=== PATIENT | male | born 1970 | race American Indian/Alaskan Native ===

== ENCOUNTER 2016-10-01 10:34 | Outpatient (CLI) | payer MEDICARE ==
--- NOTE | 2016-10-01 14:47 | XRay Report ---
BILATERAL HIP RADIOGRAPHS WITH PELVIS INDICATION: Hip pain. COMPARISON: 06/27/2012 abdomen radiograph. FINDINGS: An AP pelvis and bilateral frog-leg projections of the hips demonstrate 3 threaded screws each within proximal femur bilaterally, traversing the neck. Old deformity/bony ridging along the right femoral neck noted, more so along its outer/lateral aspect and extending to the lateral head articular surface as well. Mild right femoral head articular surface irregularity/slight flattening also noted with numerous subchondral lucencies. Left femoral head articular surface appears preserved. Mild left acetabular corner spurring laterally. Intact remainder pelvis articulation. Mild lower lumbar degenerative changes. Nonobstructive bowel gas pattern. CONCLUSION: Right hip/femoral head and neck degenerative changes mildly increased since June 2012, though again noted asymmetrically greater than the left in this patient with stable bilateral proximal femoral post surgical changes, as described. Thank you for the opportunity to participate in this patient's care.
== END 2016-10-01 10:35 | disposition home or self-care (01) ==
LOC: SPVIMAG 10:34
DX: M25.551 Pain in right hip (principal); M25.552 Pain in left hip; M47.896 Other spondylosis, lumbar region
CPT/HCPCS: 73521

== ENCOUNTER 2017-03-26 11:07 | Outpatient (CLI) | payer MEDICARE ==
--- NOTE | 2017-03-26 11:47 | XRay Report ---
Right knee, 4 views: Pain Standing images are obtained. There is good alignment of the knee joint with good preservation of the joint spaces and articular surfaces. The bones are well-mineralized. No swelling and no effusion noted. Impression: Normal exam.
== END 2017-03-26 11:08 | disposition home or self-care (01) ==
LOC: SPVIMAG 11:07
DX: M25.561 Pain in right knee (principal)